=== PATIENT | female | born 1930 | race Caucasian/White ===

== ENCOUNTER → 2017-01-09 | Outpatient (CLI) | payer MEDICARE, BC ==
[~2017-01-09] MED LIST: ALLOPURINOL300 M1 FT; LEVOTHYROXIN0.075 M1 PO; LOSARTAN POTASS1 TAB PO; MECLIZINE25 MG PO; MEDROL 4MG. DOSE4 MG PO; METOPROLOL SUC100 M2 PO; ZITHROMAX Z PA250 MG PO
[2017-01-09 13:26] LABS: HEMOGLOBIN 12.9 g/dL (12.2-16.2); LYMPH # 2.7 K/mm3 (0.7-4.5)
[2017-01-09 16:17] LABS: BUN 19 mg/dL (7-18)
[2017-01-09 16:39] LABS: GFR (ESTIMATED) 68 ML/MIN (59-)
[2017-01-10 08:40] LABS: Vitamin D, 25-Hydroxy 21.2 ng/mL (30.0-100.0)
== END ==
LOC: LAB 12:46 → RT 12:46
PROVIDERS: Family Medicine
DX: R53.83 Other fatigue (principal); R00.2 Palpitations